=== PATIENT | male | born 1975 | race Caucasian/White ===

== ENCOUNTER → 2019-12-15 08:58 | Outpatient (CLI) | payer OTHER, SELFPAY ==
[2019-12-15 09:29] LABS: BUN Creatinine Ratio 17.5 (6-22); Blood Urea Nitrogen 14 mg/dL (9-20); Estimated Glomerular Filt Rate > 60.0 mL/min (>60)
[2019-12-15 10:01] LABS: Prostate Specific Antigen 0.741 ng/mL (0.10-4.00)
== END ==
PROVIDERS: Referring Provider Specialist; Visit Provider Specialist
DX: R31.9 Hematuria, unspecified (principal)
CPT/HCPCS: 36415; 82565; 84153; 84520

== ENCOUNTER → 2019-12-15 14:53 | Outpatient (CLI) | payer OTHER, SELFPAY ==
--- NOTE | 2019-12-15 | DI.CT.S_ITS ---
PROCEDURE: CT ABDOMEN PELVIS WO/W CON INDICATIONS: Hematuria, unspecified TECHNIQUE: Optional 5 mm thick noncontrast images acquired from the diaphragm to the symphysis pubis. After the administration of intravenous contrast, 5 mm thick images acquired from the diaphragm to the symphysis pubis after a 10-minute delay. 2 mm thick coronal and sagittal reformats were then performed of the kidneys and ureters. For radiation dose reduction, the following was used: automated exposure control, adjustment of mA and/or kV according to patient size. COMPARISON: [facility], CT, IVP (ABD & PEL WWO CONTRAST), 11/10/2015, 9:05. [facility], [place], RENAL COMPLETE, 10/18/2017, 9:41. [facility], [place], RENAL COMPLETE, 08/28/2016, 10:58. FINDINGS: Image quality: Excellent. Lung bases: Lung bases are clear. Heart size is normal. Urinary system: Again noted is a 3.9 x 4.1 cm cyst in the superior pole left kidney with mural calcification. Compared to the last exam, there is no significant change. A 3.4 4.5 cm simple cyst is noted in the mid zone of the right kidney, also stable. Both kidneys are normal in size, without hydronephrosis or nephrolithiasis on pre-contrast images. No perinephric fat stranding. There is normal bilateral renal enhancement. Renal calyces appear normal in morphology when filled with contrast. Opacified portions of both ureters demonstrate normal caliber. Bladder wall thickness is normal. No calcified bladder stones. Prostate is mildly enlarged. The bladder base is mildly irregular. Other solid organs: Mild hepatic steatosis. Liver is normal in size and enhancement. Gallbladder is normal. Biliary system is non dilated. Pancreas enhances normally. Spleen is normal in size and enhancement. No adrenal nodules. Peritoneum and bowel: Bowel loops demonstrate normal wall thickness and caliber. No free fluid or air. Nodes and vessels: No retroperitoneal or mesenteric adenopathy by size criteria. Aorta and inferior vena cava are normal in size. Abdominal wall: No ventral hernias. Pelvis: No pathologic free pelvic fluid. No inguinal hernias or adenopathy. Bones: No suspicious bony lesions. No vertebral body compression fractures. IMPRESSION: 1. Stable renal cysts bilaterally since 11/13/2015. 2. Prostate is mildly enlarged. The bladder base is slightly irregular but definitive CT findings to explain hematuria. If clinically indicated, cystoscopy can be obtained. 3. Hepatic steatosis. Dictated by: Derick Elena M.D. on 12/15/2019 at 17:43 Approved by: Derick Elena M.D. on 12/15/2019 at 18:36
== END ==
PROVIDERS: Referring Provider Specialist; Visit Provider Specialist
DX: R31.9 Hematuria, unspecified (principal); N28.1 Cyst of kidney, acquired; N40.0 Benign prostatic hyperplasia without lower urinary tract symptoms; K76.0 Fatty (change of) liver, not elsewhere classified
CPT/HCPCS: 36415; 74178; 82565; 84153; 84520; Q9967